=== PATIENT | female | born 1940 | race Caucasian/White ===

== ENCOUNTER 2024-06-22 09:42 | Outpatient (CLI) | payer MEDICARE, OTHER ==
[~2024-06-22 09:42] MED LIST: ATOR10TA87 PO; CELE-193 PO; METF500T PO; SERT-153 PO
[2024-06-22 10:19] LABS: BASOPHILS # (AUTO) 0.1 X10'3 (0-0.2); BASOPHILS % (AUTO) 1.1 % (0-1); EOSINOPHILS # (AUTO) 0.2 X10'3 (0-0.9); EOSINOPHILS % (AUTO) 3.3 % (0-6); HEMATOCRIT 44.2 % (35.0-45.0); HEMOGLOBIN 14.3 g/dl (12.0-16.0); LYMPHOCYTES # (AUTO) 1.4 X10'3 (1.1-4.8); LYMPHOCYTES % (AUTO) 26.5 % (21-51); MEAN CORPUSCULAR HEMOGLOBIN 26.8 PG (27.0-31.0); MEAN CORPUSCULAR HGB CONC 32.3 g/dL (33.0-36.5); MEAN CORPUSCULAR VOLUME 83.1 FL (78-98); MEAN PLATELET VOLUME 8.5 FL (7.4-10.4); MONOCYTES # (AUTO) 0.4 X10'3 (0-0.9); MONOCYTES % (AUTO) 8.1 % (2-12); NEUTROPHILS # (AUTO) 3.3 X10'3 (1.8-7.7); PLATELET COUNT 198 X10'3 (140-440); RED BLOOD COUNT 5.32 X10'6 (4.20-5.60); RED CELL DISTRIBUTION WIDTH 15.1 % (11.5-14.5); WHITE BLOOD COUNT 5.4 X10'3 (4.5-11.0)
[2024-06-22 10:26] LABS: APTT 28 SECONDS (22-32); PROTHROMBIN TIME 10.8 SECONDS (9.0-12.0)
[2024-06-22 10:29] LABS: ALBUMIN 4.3 G/DL (3.4-5.0); ANION GAP 7 (8-16); BLOOD UREA NITROGEN 20 MG/DL (7-18); BUN/CREATININE RATIO 29.4 (10.0-20.0); CALCIUM 9.2 MG/DL (8.5-10.1); CHLORIDE 101 MMOL/L (99-107); CHOL/HDL RATIO 2.1 (0.00-4.99); CHOLESTEROL 247 MG/DL (0-200); CREATININE 0.68 MG/DL (0.40-0.90); GLUCOSE 86 MG/DL (70-104); HDL CHOLESTEROL 116 MG/DL (35-60); LDL CHOLESTEROL 112 MG/DL (50-100); POTASSIUM 4.3 MMOL/L (3.5-5.1); SODIUM 138 MMOL/L (135-145); TOTAL CARBON DIOXIDE 29.7 MMOL/L (24-32); TRIGLYCERIDES 57 MG/DL (20-135); eGFR 82 ML/MIN
== END 2024-06-22 23:59 | disposition home or self-care (01) ==
LOC: LAB 09:42 → EDSTATUS 13:31 → LAB 23:59 → EDSTATUS 06-27 10:03
PROVIDERS: ATTEND Internal Medicine Interventional Cardiology
DX: I11.9 Hypertensive heart disease without heart failure (principal); E78.5 Hyperlipidemia, unspecified; I70.293 Other atherosclerosis of native arteries of extremities, bilateral legs; R07.9 Chest pain, unspecified
CPT/HCPCS: 36415; 80048; 80061; 85025; 85610; 85730

== ENCOUNTER 2024-08-16 09:27 | Day surgery (SDC) | payer MEDICARE, OTHER ==
[2024-08-12 12:03] LABS: BASOPHILS # (AUTO) 0.1 X10'3 (0-0.2); BASOPHILS % (AUTO) 1.4 % (0-1); EOSINOPHILS # (AUTO) 0.2 X10'3 (0-0.9); EOSINOPHILS % (AUTO) 1.6 % (0-6); HEMOGLOBIN 12.2 g/dl (12.0-16.0); LYMPHOCYTES # (AUTO) 1.7 X10'3 (1.1-4.8); LYMPHOCYTES % (AUTO) 16.3 % (21-51); MEAN CORPUSCULAR HEMOGLOBIN 26.5 PG (27.0-31.0); MEAN CORPUSCULAR HGB CONC 32.9 g/dL (33.0-36.5); MEAN CORPUSCULAR VOLUME 80.7 FL (78-98); MEAN PLATELET VOLUME 6.9 FL (7.4-10.4); MONOCYTES # (AUTO) 0.8 X10'3 (0-0.9); MONOCYTES % (AUTO) 7.9 % (2-12); NEUTROPHILS # (AUTO) 7.7 X10'3 (1.8-7.7); NEUTROPHILS % (AUTO) 72.8 % (42-75); PLATELET COUNT 495 X10'3 (140-440); RED BLOOD COUNT 4.59 X10'6 (4.20-5.60); RED CELL DISTRIBUTION WIDTH 14.2 % (11.5-14.5); WHITE BLOOD COUNT 10.6 X10'3 (4.5-11.0)
[2024-08-12 12:14] LABS: APTT 30 SECONDS (22-32); PROTHROMBIN TIME 10.9 SECONDS (9.0-12.0)
[2024-08-12 12:19] LABS: ALBUMIN 3.1 G/DL (3.4-5.0); ANION GAP 10 (8-16); BLOOD UREA NITROGEN 15 MG/DL (7-18); BUN/CREATININE RATIO 20.8 (10.0-20.0); CALCIUM 9.1 MG/DL (8.5-10.1); CHLORIDE 96 MMOL/L (99-107); CREATININE 0.72 MG/DL (0.40-0.90); GLUCOSE 110 MG/DL (70-104); POTASSIUM 4.5 MMOL/L (3.5-5.1); SODIUM 132 MMOL/L (135-145); TOTAL CARBON DIOXIDE 26.4 MMOL/L (24-32); eGFR 77 ML/MIN
[2024-08-16] VITALS (12 sets, daily range): BP systolic 122–145; BP diastolic 63–89; PULSE 57–74; RESP 14–18; TEMP 98.3; O2SAT 95–98
[~2024-08-16] VITALS: Ht 167.6 cm; Wt 52.2 kg
[2024-08-16] MEDS ORDERED: CHOL100046 PO (10:04)
[2024-08-16] MEDS ORDERED: SACU1TAB PO (10:04)
[2024-08-16] MEDS ORDERED: SERT-434 PO (10:04)
[2024-08-16] MEDS ORDERED: EMPA10TA PO (10:04)
[2024-08-16] MEDS ORDERED: OSC500T PO (10:04)
[2024-08-16] MEDS ORDERED: DICL50TA14 PO (10:04)
[2024-08-16] MEDS ORDERED: METF-900 PO (10:04)
[2024-08-16] MEDS ORDERED: LIDOcaine 1% (10mg/ml) 2ml vial ONE (11:49)
[2024-08-16] MEDS ORDERED: verapamil 2.5 mg/ml inj IV ONE (11:50)
[2024-08-16] MEDS ORDERED: iohexol 350MG/ML 100ml bottle IV ONE (11:50)
[2024-08-16] MEDS ORDERED: fentaNYL/PF 50MCG/1 ML 2ML syringe ONE (11:50)
[2024-08-16] MEDS ORDERED: midazolam 1 mg/ML 2ml injection ONE (11:50)
[2024-08-16] MEDS ORDERED: heparin 1,000unit/ml 10ml vial 10 ML ONE (11:50)
[2024-08-16] MEDS: diphenhydrAMINE 25mg capsule PO PRN (11:54)
[2024-08-16] MEDS: LORazepam 0.5 MG tablet PO PRN (11:54)
[2024-08-16] MEDS: normal saline 1,000 ML IV SCH (11:54)
[2024-08-16] MEDS ORDERED: HYDROcodone/acetaminophen 5mg/325mg tablet PO PRN (12:55)
[2024-08-16] MEDS ORDERED: HYDROcodone/acetaminophen 10/325mg tab PO PRN (12:55)
== END 2024-08-16 16:10 | disposition home or self-care (01) ==
LOC: SSTAY O 09:27
PROVIDERS: ATTEND Student in an Organized Health Care Education/Training Program
DX: R07.9 Chest pain, unspecified (principal); I25.10 Atherosclerotic heart disease of native coronary artery without angina pectoris; E78.5 Hyperlipidemia, unspecified; I11.0 Hypertensive heart disease with heart failure; I50.22 Chronic systolic (congestive) heart failure; M19.90 Unspecified osteoarthritis, unspecified site; Z88.2 Allergy status to sulfonamides; E11.9 Type 2 diabetes mellitus without complications; I70.203 Unspecified atherosclerosis of native arteries of extremities, bilateral legs
CPT/HCPCS: 36415; 80048; 85025; 85610; 85730; 93005; 93458; 99152; A6258; A6402; C1894; J1644; J2003; J2250; J3010; J3490; J7030; Q0163; Q9967; Z7610; A6449

== ENCOUNTER 2025-06-28 05:42 | Day surgery (SDC) | payer MEDICARE, OTHER ==
[2025-06-20 15:42] LABS: MEAN PLATELET VOLUME 8.0 FL (7.4-10.4); PRE OP HEMATOCRIT 40.8 % (35.0-45.0); PRE OP HEMOGLOBIN 13.4 g/dL (12.0-16.0); PRE OP PLATELET COUNT 228 X10'3 (140-440); PRE OP WHITE BLOOD COUNT 7.3 10'3 (4.8-10.8); RED CELL DISTRIBUTION WIDTH 14.4 % (11.5-14.5)
[2025-06-20 15:59] LABS: CREATININE 0.81 MG/DL (0.40-0.90); PRE OP ALT 28 U/L (30-65); PRE OP ANION GAP 10 (8-16); PRE OP AST 17 U/L (10-37); PRE OP BILIRUB, TOTAL 0.7 MG/DL (0.0-1.0); PRE OP GLUCOSE 96 MG/DL (70-104); PRE OP POTASSIUM 4.8 MMOL/L (3.4-5.1); PRE OP SODIUM 136 MMOL/L (135-145); TOTAL CARBON DIOXIDE 30.3 MMOL/L (24-32); eGFR 67 ML/MIN
[2025-06-28] VITALS (10 sets, daily range): BP systolic 110–152; BP diastolic 53–61; PULSE 16–86; RESP 12–16; TEMP 97; O2SAT 93–100
[~2025-06-28] VITALS: Ht 167.6 cm; Wt 54.4 kg
[2025-06-28] MEDS: clindamycin-Cleocin 900mg/D5W 50 ML IV ONE (05:30)
[~2025-06-28 05:42] MED LIST changes: -ATOR10TA87 PO; -CELE-193 PO; +CHOL100046 PO; +CYAN-34 PO; +DICL50TA14 PO; +DOCUMENT DATE & TIME OF BETA-BLOCKER PO ONE; +EMPA10TA PO; +FOLI0.4T6 PO; +METO-395 PO; +MULT-1249 PO; +OSC500T PO; +PYRI50TA12 PO; +SACU1TAB PO; -SERT-153 PO; +SERT-434 PO; +ceFAZolin 2gm/dext,iso 50mL 50 ML IV ONE
[2025-06-28] MEDS ORDERED: LIDOcaine 1% (10mg/ml)w/preservative inj. 20ml MDV ONE (06:53)
[2025-06-28] MEDS ORDERED: BUPIVAcaine/PF 2.5mg/ml (0.25%) 10ml vial ONE (06:54)
[2025-06-28] MEDS ORDERED: methylene blue (5mg/ml) 50mg/10ml ampul IV ONE (06:54)
[2025-06-28] MEDS ORDERED: BUPIVACAINE liposomal/PF 13.3 MG/ML 10mL vial IM ONE (06:54)
[2025-06-28] MEDS ORDERED: labetalol 20mg/4ml (5mg/ml) syringe IV PRN (07:20)
[2025-06-28] MEDS ORDERED: fentaNYL/PF 50MCG/1 ML 2ML syringe IV PRN (07:20)
[2025-06-28] MEDS ORDERED: ondansetron/PF 4mg/2ml inj IV PRN (07:20)
[2025-06-28] MEDS ORDERED: hydrALAZINE 20mg/ml inj. IV PRN (07:20)
[2025-06-28] MEDS ORDERED: ringers solution, lacted 1,000 ML IV SCH (07:20)
[2025-06-28] MEDS ORDERED: fentaNYL/PF 50MCG/1 ML 2ML syringe ONE (07:27)
[2025-06-28] MEDS ORDERED: ondansetron/PF 4mg/2ml inj ONE (07:28)
[2025-06-28] MEDS ORDERED: dexamethasone sod phosphate 4mg/ml inj. ONE (07:28)
[2025-06-28] MEDS ORDERED: propofol inj 20 ML IV ONE (07:28)
[2025-06-28] MEDS ORDERED: LIDOcaine 1%/PF 5ML 10 MG/ML VIAL ONE (07:28)
[2025-06-28] MEDS ORDERED: phenylephrine 10mg/ml inj. ONE (08:17)
[2025-06-28] MEDS ORDERED: desflurane 240ml liquid inh. IH ONE (08:17)
[2025-06-28] MEDS ORDERED: acetaminophen 1,000mg/100ml IV 100 ML IV ONE (08:28)
[2025-06-28] MEDS: BUPIVAcaine/PF 2.5mg/ml (0.25%) 10ml vial IJ ONE (09:45)
--- NOTE | 2025-06-28 09:59 | OPERATIVE REPORT ---
Operative Report Providers to CC: JAQUAN LANZA DO ~ Date of Procedure: Jun 28, 2025 Pre-Operative Diagnosis: left breast cancer Post-Operative Diagnosis SAME as PRE-Op Procedure Performed Left breast wire localized lumpectomy with pintuition Surgeon: Dr. Jaquan Lanza [employer] Ingrid Noguera PA-C Anesthesiologist: Burke Chairez Type of Anesthesia: General (with LMA) Findings: pintuition marker seen on specimen radiograph Complications None Prosthetics\Implants used: None Estimated Blood Loss: Less than 2 mL Specimen Removed: Left breast wire localized lumpectomy suture marked short superior long lateral double deep Left axillary sentinel lymph node #1 Hot and blue 3300 Left axillary nonsentinel lymph node Description of Procedure: Stephanie is a 85-year-old female who was diagnosed with left breast invasive ductal carcinoma she was seen and evaluated in the office by myself and had clearance by her primary care provider. We decided to move forward breast conservation and sampling of the sentinel lymph nodes because of the nature of her tumor type. Informed consent was obtained. Patient had the nuclear medicine injection the day before surgery. She was seen in the preoperative holding area by myself and the anesthesiologist. The left breast was marked with my initials. She had an IV in place, SCDs to lower extremities, and antibiotics hanging at the bedside. She was taken to the OR and placed on table in supine position with the arms extended. General anesthesia was administered with an LMA. Antibiotics were administered prior to the cut of surgery. The left breast was scanned with the pintuition probe and the signal was detected at the 7:30 position approximately 2 cm from the nipple and the skin was marked with a marking pen. The hot signal with the gamma probe was also detected in the left axilla and that was marked with a marking pen. 2 mL of methylene blue dye was injected at the 3 o'clock position subareolar massaged for 4 minutes. A proposed incision was made with a marking pen at the areolar edge from 6-9 o' clock. 1% moderate lidocaine plain was injected at the site. The incision was made with a 15 blade and extended through the deep dermal layer with the cutting on the cautery. Aixa retractors were placed in the incision and the tissue was scanned with a pintution probe to guide the dissection. The specimen was completely excised and oriented with short stitch superior, long suture lateral, double suture deep. It was placed in the specimen radiograph board into the fact that drawn. The marker was identified. Based on palpating the specimen itself it appeared that the posterior margin was closed. I excised an additional posterior margin and suture marked the final margin. Both specimens were placed off the field in formalin in separate containers. I turned my attention to the sentinel lymph node biopsy. I injected 1% lidocaine in the left axillary space just in to the deep dermal layer. Incision was made with a 15 blade. Dissected through the deep dermal layer with the cutting on the cautery. Aixa retractors were placed in the cavity and I dissected through the axillary fascia and hemostasis was achieved with Bovie electrocautery. I switched to the Torres retractors and used the gamma probe to identify a hot node was also blue with lymphatics channeling to the lymph node. There was a 2nd lymph node that was adhered to the lymph node which appeared to be a 2nd sentinel lymph node. The lymph nodes were completely excised together with the LigaSure. Hemostasis was achieved with Bovie electrocautery. Once the specimen was out of the cavity I the two lymph nodes. The hot blue sentinel lymph node was 3300 count and the 2nd lymph node had minimal counts. It was sent in as a nonsentinel lymph node. Both were placed in separate containers off the field in formalin. The cavity was irrigated and hemostasis was achieved with Bovie electrocautery. The clavipectoral fascia was approximated with 3-0 Vicryl suture and the skin was closed with 3-0 Vicryl suture and 4-0 Monocryl running subcuticular stitch. The breast cavity was irrigated hemostasis was achieved with Bovie electrocautery. The cavity was approximated with 3-0 gretel Vicryl suture. The deep skin was closed with 3-0 Vicryl sutures, and the skin was closed with a running 4-0 Monocryl running subcuticular stitch. 0.25% Marcaine was injected at both sites and glue was placed on the skin. Sterile dressings were applied to each incision and a balled pressure dressing to the left axilla. Patient was placed in a breast binder and she was taken to recovery in stable condition without complication. All needle and sponge counts were correct Counts repoted as correct: Yes JAQUAN LANZA DO Jun 28, 2025 09:59
[2025-06-28] MEDS: morphine 4 MG/ML inj SYRINge IV PRN (10:11)
[2025-06-28] MEDS: fentaNYL/PF 50MCG/1 ML 2ML syringe IV PRN (10:28)
[2025-06-28] MEDS: LIDOcaine 1% 30ml preserv. free vial IJ ONE (12:59)
== END 2025-06-28 11:06 | disposition home or self-care (01) ==
LOC: PAS 05:42
PROVIDERS: ATTEND Surgery
DX: C50.312 Malignant neoplasm of lower-inner quadrant of left female breast (principal); E11.9 Type 2 diabetes mellitus without complications; F32.A Depression, unspecified; F41.9 Anxiety disorder, unspecified; I11.0 Hypertensive heart disease with heart failure; I50.9 Heart failure, unspecified; M81.0 Age-related osteoporosis without current pathological fracture; Z90.710 Acquired absence of both cervix and uterus; Z90.89 Acquired absence of other organs; Z87.891 Personal history of nicotine dependence
CPT/HCPCS: 19301; 36415; 38525; 38900; 76098; 80053; 82948; 85025; 88305; 88307; 88342; A4215; A4618; A6253; A6258; A6446; A7000; J0131; J1100; J2003; J2270; J2371; J2405; J2704; J3010; J3490; J7030; J7120; Q9968; Z7506; Z7508; Z7512; Z7610; J0666